=== PATIENT | female | born 1975 | race Caucasian/White ===

== ENCOUNTER 2023-12-31 13:59 | Outpatient (CLI) | payer OTHER, MEDICAID, SELFPAY ==
--- NOTE | 2023-12-31 | DI.RAD.S_ITS ---
PROCEDURE: XR CHEST 1V INDICATIONS: POST THORACENTESIS TECHNIQUE: One view of the chest was acquired. COMPARISON: [facility], CR, XR CHEST 1 VIEW, 12/26/2023, 19:45. FINDINGS: Surgical changes and devices: None. Lungs and pleura: There is elevation of left hemidiaphragm and left lower lobe atelectasis. Persistent small to moderate left pleural effusion is seen. No gross pneumothorax. Right lung is clear. Mediastinum: Mediastinal contours appear normal. Heart size is normal. Bones and chest wall: No suspicious bony lesions. Overlying soft tissues appear unremarkable. IMPRESSION: Persistent small to moderate left pleural effusion and elevation of left hemidiaphragm with left lower lobe atelectasis. No gross pneumothorax is seen post thoracentesis. Dictated by: Van Nava M.D. on 12/31/2023 at 15:28 Approved by: Van Nava M.D. on 12/31/2023 at 15:32
--- NOTE | 2023-12-31 14:02 | DI.US.S_ITS ---
PROCEDURE: US THORACENTESIS INDICATIONS: LUNG CANCER TECHNIQUE: The indications, alternatives, benefits, risks, and complications of the procedure were explained to the patient. Written informed consent was obtained and placed in the chart. The chest was examined sonographically, and an appropriate site was chosen for thoracentesis. The skin was prepared and draped in the usual sterile fashion, and 1% lidocaine was infiltrated from the skin down through the pleural surface. A 19-gauge catheter-covered needle was then introduced into the pleural space, the catheter was advanced and the needle was withdrawn, and thereafter pleural fluid was aspirated. The catheter was then removed and a dressing was applied. COMPARISON: None. FINDINGS: Access site: Right hemithorax. Needle: One-Step centesis catheter with introducer needle. Fluid volume and description: 2 L of dark red fluid. Fluid sent for diagnostic testing: None. Medications: 1% lidocaine for local anaesthesia. Complications: None; post-procedural chest radiograph is pending to assess for pneumothorax. IMPRESSION: Successful ultrasound-guided thoracentesis. Dictated by: Van Nava M.D. on 12/31/2023 at 16:08 Approved by: Van Nava M.D. on 12/31/2023 at 16:08
[2023-12-31 14:15] VITALS: BP 140/80; PULSE 76; RESP 18; O2SAT 96
[2023-12-31 15:20] VITALS: BP 141/80; PULSE 82; RESP 18; O2SAT 97
== END 2023-12-31 15:34 | disposition home or self-care (01) ==
PROVIDERS: PCP Physician Assistant; Referring Provider Internal Medicine; Visit Provider Internal Medicine
DX: C34.92 Malignant neoplasm of unspecified part of left bronchus or lung (principal); J90 Pleural effusion, not elsewhere classified; J98.11 Atelectasis
CPT/HCPCS: 32555; 71045